=== PATIENT | male | born 1970 | race Caucasian/White ===

== ENCOUNTER 2019-09-03 01:59 | Emergency (ER) | payer BC ==
[~2019-09-03] VITALS: Ht 180.3 cm; Wt 97.7 kg
[2019-09-03 02:13] VITALS: BP 143/85; TEMP 98.6
[2019-09-03] MEDS ORDERED: AMOXICILLIN 50500 MG PO (03:40)
[2019-09-03] MEDS ORDERED: SUDAFED30 MG PO (03:40)
[2019-09-03] MEDS ORDERED: NORCO 325 MG-51 TAB PO (03:40)
[2019-09-03] MEDS ORDERED: BENADRYL25 M2 PO (03:40)
[2019-09-03 03:59] VITALS: PULSE 71
== END 2019-09-03 03:59 | disposition home or self-care (01) ==
LOC: COL.ER 01:59
DX: H66.42 Suppurative otitis media, unspecified, left ear (principal)
CPT/HCPCS: J0696